=== PATIENT | male | born 2000 | race American Indian/Alaskan Native ===

== ENCOUNTER 2020-10-08 10:32 | Emergency (ER) | payer SELFPAY ==
[2020-10-08 10:54] VITALS: BP 131/77
[2020-10-08] MEDS ORDERED: IBUPROFEN 600 MG TAB PO ONE (11:50)
--- NOTE | 2020-10-08 12:20 | Emergency Department Report ---
ED ENT HPI - General Chief complaint: Upper Respiratory Infection Stated complaint: NECK/EAR/THROAT PAIN Time Seen by Provider: 10/08/20 11:21 Source: patient Mode of arrival: Ambulatory Limitations: No Limitations - History of Present Illness Initial comments: Patient is a 20-year-old male presents emergency room complaints of a sore throat that began 2 days ago. He has associated pain with swallowing but is able to tolerate p.o. intake. He has associated chills, fever, generalized body aches, ear pain, headache, fatigue. He denies any nausea, vomiting, diarrhea, cough, shortness of breath, chest pain, abdominal pain. He denies any known sick contacts or recent travel. No past medical history. No allergies to medications. He has not been vaccinated for COVID-19. - Related Data Previous Rx's Medication Instructions Recorded Last Taken Type Amoxicillin [Trimox CAP] 500 mg PO BID 10 Days #20 capsule 10/08/20 Unknown Rx Nystas/Diphen/Xyl Visc/Mylanta 30 ml MM Q4H PRN #300 ml 10/08/20 Unknown Rx [Magic Mouthwash] Allergies Allergy/AdvReac Type Severity Reaction Status Date / Time No Known Allergies Allergy Unverified 10/08/20 10:51 ED Dental HPI - General Chief complaint: Upper Respiratory Infection Stated complaint: NECK/EAR/THROAT PAIN Time Seen by Provider: 10/08/20 11:21 Source: patient Mode of arrival: Ambulatory Limitations: No Limitations - Related Data Previous Rx's Medication Instructions Recorded Last Taken Type Amoxicillin [Trimox CAP] 500 mg PO BID 10 Days #20 capsule 10/08/20 Unknown Rx Nystas/Diphen/Xyl Visc/Mylanta 30 ml MM Q4H PRN #300 ml 10/08/20 Unknown Rx [Magic Mouthwash] Allergies Allergy/AdvReac Type Severity Reaction Status Date / Time No Known Allergies Allergy Unverified 10/08/20 10:51 ED Review of Systems ROS: Stated complaint: NECK/EAR/THROAT PAIN Other details as noted in HPI Comment: All other systems reviewed and negative ED Past Medical Hx - Past Medical History Previous Medical History?: No - Surgical History Past Surgical History?: No - Social History Smoking Status: Never Smoker Substance Use Type: None - Medications Home Medications: Home Medications Medication Instructions Recorded Confirmed Last Taken Type Amoxicillin [Trimox CAP] 500 mg PO BID 10 Days #20 capsule 10/08/20 Unknown Rx Nystas/Diphen/Xyl Visc/Mylanta 30 ml MM Q4H PRN #300 ml 10/08/20 Unknown Rx [Magic Mouthwash] ED Physical Exam - General Limitations: No Limitations General appearance: alert, in no apparent distress - Head Head exam: Present: atraumatic, normocephalic - Eye Eye exam: Present: normal appearance - ENT ENT exam: Present: normal orophraynx, mucous membranes moist, other (bilateral cerumen impactions) - Neck Neck exam: Present: normal inspection, full ROM. Absent: tenderness, meningismus - Respiratory Respiratory exam: Present: normal lung sounds bilaterally. Absent: respiratory distress, wheezes, rales, rhonchi, stridor, chest wall tenderness, accessory muscle use, decreased breath sounds, prolonged expiratory - Cardiovascular Cardiovascular Exam: Present: regular rate, normal rhythm, normal heart sounds. Absent: systolic murmur, diastolic murmur, rubs, gallop - Neurological Exam Neurological exam: Present: alert, oriented X3 - Psychiatric Psychiatric exam: Present: normal affect, normal mood - Skin Skin exam: Present: warm, dry, intact ED Course Vital Signs 10/08/20 10/08/20 10:54 12:58 Temperature 100.7 F H Pulse Rate 103 H 86 Respiratory 20 16 Rate Blood Pressure 131/77 O2 Sat by Pulse 98 100 Oximetry ED Medical Decision Making - Lab Data Vital Signs 10/08/20 10/08/20 10:54 12:58 Temperature 100.7 F H Pulse Rate 103 H 86 Respiratory 20 16 Rate Blood Pressure 131/77 O2 Sat by Pulse 98 100 Oximetry - Medical Decision Making Patient is a 20-year-old male presents emergency room complaints of a sore throat that began 2 days ago. He has associated pain with swallowing but is able to tolerate p.o. intake. He has associated chills, fever, generalized body aches, ear pain, headache, fatigue. He denies any nausea, vomiting, diarrhea, cough, shortness of breath, chest pain, abdominal pain. He denies any known sick contacts or recent travel. No past medical history. No allergies to medications. He has not been vaccinated for COVID-19. Initial vitals with fever and mild tachycardia. given ibuprofen. On exam normal oropharynx, no tonsillar hypertrophy or exudates, uvula is midline, no uvular edema or deviation, no trismus, no tongue elevation, bilateral cerumen impactions. Advised patient to use Debrox [id number] to clean his ears and do not use Q-tips. Rapid strep performed by me and it is positive for strep throat. Patient given prescription for medications. Advised patient Please take medication as prescribed. May alternate Tylenol and then ibuprofen every 6-8 hours as needed for fever. Increase your fluid intake over the next several days. Throw away your toothbrush. Do not drink after others or allow others to drink after you. Gargle with warm salt water. Follow-up with your primary care doctor for reexamination. Return to emergency room for new or worse symptoms. Critical care attestation.: If time is entered above; I have spent that time in minutes in the direct care of this critically ill patient, excluding procedure time. ED Disposition Clinical Impression: Strep pharyngitis Disposition: DC- TO HOME OR SELFCARE Is pt being admited?: No Does the pt Need Aspirin: No Condition: Stable Instructions: Strep Throat, Adult, [id number] Additional Instructions: Please take medication as prescribed. May alternate Tylenol and then ibuprofen every 6-8 hours as needed for fever. Increase your fluid intake over the next several days. Throw away your toothbrush. Do not drink after others or allow others to drink after you. Gargle with warm salt water. Follow-up with your primary care doctor for reexamination. Return to emergency room for new or worse symptoms. Prescriptions: Nystas/Diphen/Xyl Visc/Mylanta [Magic Mouthwash] 30 ml MM Q4H PRN #300 ml PRN Reason: sore throat Amoxicillin [Trimox CAP] 500 mg PO BID 10 Days #20 capsule Referrals: JUNO WEBSTER MD [Staff Physician] - 3-5 Days [facility] [Provider Group] - 3-5 Days Time of Disposition: 12:18 Print Language: GEORGIAN
== END 2020-10-08 12:55 | disposition home or self-care (01) ==
LOC: ED 10:32
DX: J02.0 Streptococcal pharyngitis (principal); Z79.899 Other long term (current) drug therapy
CPT/HCPCS: 87430